=== PATIENT | male | born 1940 | race Caucasian/White ===

== ENCOUNTER 2023-08-18 08:24 | Day surgery (SDC) | payer MEDICARE ==
[~2023-08-18] VITALS: Ht 177.8 cm; Wt 80.4 kg
[2023-08-18] VITALS (9 sets, daily range): BP systolic 103–154; BP diastolic 43–88; PULSE 76–127; RESP 15–16; TEMP 98.3; O2SAT 94–97
[~2023-08-18 08:24] MED LIST: DABI150C PO; DIGO125T PO; DILT120T3 PO; DRON400T6 PO; FOLI0.4T6 PO; GLUC-131 PO; LOSA-416 PO; LOVA40TA2 PO; OMEG-5 PO; TERA5CAP4 PO; TRIA1CAP88 PO; normal saline 1000ml 1,000 ML IV SCH; vit b 12 PO
[2023-08-18] MEDS ORDERED: normal saline 1000ml 1,000 ML IV ONE (08:55)
[2023-08-18] MEDS ORDERED: VANCOMYCIN 1,500MG in NS 300ml IVPB IV ONE (09:00)
[2023-08-18] MEDS ORDERED: cefazolin 2gm/D5W 100mL 100 ML IV ONE (09:00)
[2023-08-18] MEDS ORDERED: iohexol 350 MG/ML 50ML vial IV ONE (09:06)
[2023-08-18] MEDS ORDERED: midazolam 1 mg/ML 2ml injection ONE ×2 (09:06→10:47)
[2023-08-18] MEDS ORDERED: vancomycin 1,000mg inj ONE (09:06)
[2023-08-18] MEDS ORDERED: fentaNYL/PF 50MCG/1 ML 2ML syringe ONE (09:06)
[2023-08-18] MEDS ORDERED: LIDOcaine 1% W/epiNEPHrine 1:100,000 20ml vial ONE (09:06)
[2023-08-18 09:29] LABS: BASOPHILS # (AUTO) 0.1 X10'3 (0-0.2); BASOPHILS % (AUTO) 0.6 % (0-1); EOSINOPHILS # (AUTO) 0.4 X10'3 (0-0.9); EOSINOPHILS % (AUTO) 3.8 % (0-6); HEMATOCRIT 41.7 % (42.0-52.0); HEMOGLOBIN 14.2 g/dl (14.0-17.9); LYMPHOCYTES # (AUTO) 1.1 X10'3 (1.1-4.8); MEAN CORPUSCULAR HEMOGLOBIN 35.2 PG (27.0-31.0); MEAN CORPUSCULAR VOLUME 103.5 FL (78-98); MEAN PLATELET VOLUME 8.4 FL (7.4-10.4); MONOCYTES # (AUTO) 0.8 X10'3 (0-0.9); MONOCYTES % (AUTO) 8.8 % (2-12); NEUTROPHILS # (AUTO) 7.1 X10'3 (1.8-7.7); NEUTROPHILS % (AUTO) 74.8 % (42-75); PLATELET COUNT 154 X10'3 (140-440); RED BLOOD COUNT 4.03 X10'6 (4.70-6.10); RED CELL DISTRIBUTION WIDTH 13.6 % (11.5-14.5); WHITE BLOOD COUNT 9.4 X10'3 (4.5-11.0)
[2023-08-18 09:41] LABS: PROTHROMBIN TIME 10.3 SECONDS (9.0-12.0)
[2023-08-18 09:57] LABS: ALBUMIN 3.7 G/DL (3.4-5.0); ANION GAP 9 (8-16); BLOOD UREA NITROGEN 26 MG/DL (7-18); BUN/CREATININE RATIO 29.5 (10.0-20.0); CALCIUM 9.3 MG/DL (8.5-10.1); CHLORIDE 98 MMOL/L (99-107); CREATININE 0.88 MG/DL (0.60-1.10); GLUCOSE 96 MG/DL (70-104); MAGNESIUM 2.2 MG/DL (1.5-2.4); POTASSIUM 4.9 MMOL/L (3.5-5.1); SODIUM 132 MMOL/L (135-145); TOTAL CARBON DIOXIDE 24.6 MMOL/L (24-32); eCRCL 67 ML/MIN; eGFR 83 ML/MIN
[2023-08-18] MEDS ORDERED: GABA300C PO (09:59)
[2023-08-18] MEDS ORDERED: METO100T7 PO (09:59)
[2023-08-18] MEDS ORDERED: SPIR25TA5 PO (09:59)
[2023-08-18] MEDS ORDERED: DAPA10TA PO (09:59)
[2023-08-18] MEDS ORDERED: HYDR200T73 PO (09:59)
[2023-08-18] MEDS ORDERED: METO-411 PO (09:59)
[2023-08-18] MEDS ORDERED: Calcium Citrate PO (10:04)
[2023-08-18] MEDS ORDERED: BETA1TAB20 PO (10:04)
[2023-08-18] MEDS ORDERED: Folate PO (10:04)
[2023-08-18] MEDS ORDERED: Vitamin D3 (10:04)
[2023-08-18] MEDS ORDERED: Vitamin B12 (10:04)
[2023-08-18] MEDS ORDERED: ABAT125S (10:07)
[2023-08-18] MEDS ORDERED: HYDROcodone/acetaminophen 10/325mg tab PO PRN (13:45)
[2023-08-18] MEDS ORDERED: HYDROcodone/acetaminophen 5mg/325mg tablet PO PRN (13:45)
[2023-08-18] MEDS ORDERED: normal saline 1000ml 1,000 ML IV SCH (13:50)
== END 2023-08-18 14:40 | disposition home or self-care (01) ==
LOC: SSTAY O 08:24
PROVIDERS: ATTEND Internal Medicine Cardiovascular Disease
DX: I42.0 Dilated cardiomyopathy (principal); I44.7 Left bundle-branch block, unspecified; I50.22 Chronic systolic (congestive) heart failure; I08.3 Combined rheumatic disorders of mitral, aortic and tricuspid valves; I27.20 Pulmonary hypertension, unspecified; I48.91 Unspecified atrial fibrillation; Z72.89 Other problems related to lifestyle; Z79.899 Other long term (current) drug therapy
CPT/HCPCS: 33225; 33249; 36415; 71045; 80048; 83735; 85025; 85610; 93005; 99152; 99153; C1769; C1882; C1895; C1898; C1900; J2250; J3010; J3370; J3490; J7030; J7040; Q9967; C2621